=== PATIENT | female | born 1980 | race Two or more races ===

== ENCOUNTER 2017-01-04 08:15 | Outpatient (CLI) | payer OTHER | END 2017-01-04 08:16 | disposition critical access hospital (66) | LOC: EMS 08:15 | PROVIDERS: ATTEND Surgery | DX: R06.02 Shortness of breath (principal); R11.2 Nausea with vomiting, unspecified; R07.9 Chest pain, unspecified | CPT/HCPCS: A0425; A0427 ==

== ENCOUNTER 2017-10-13 08:00 | Outpatient (CLI) | payer OTHER | END 2017-10-13 08:01 | disposition home or self-care (01) | LOC: LAB.WCP 08:00 | PROVIDERS: ATTEND Internal Medicine Rheumatology | DX: M79.1 Myalgia (principal) | CPT/HCPCS: 36415; 82550 ==

== ENCOUNTER 2019-03-23 08:00 | Outpatient (CLI) | payer OTHER ==
[2019-03-23 19:01] LABS: BASOPHILS # (AUTO) 0.1 10^3/uL (0.0-0.1); BASOPHILS % (AUTO) 0.7 %; EOSINOPHILS # (AUTO) 0.1 10^3/uL (0.0-0.7); EOSINOPHILS % (AUTO) 0.7 %; HGB - HEMOGLOBIN 13.2 g/dL (12.0-16.0); LYMPHOCYTES # (AUTO) 1.7 10^3/uL (1.5-3.5); LYMPHOCYTES % (AUTO) 14.1 %; MEAN CORPUSCULAR HEMOGLOBIN 30.4 pg (27.0-31.0); MEAN CORPUSCULAR HGB CONC 31.6 g/dL (32.0-36.0); MEAN CORPUSCULAR VOLUME 96.3 fL (81.0-99.0); MEAN PLATELET VOLUME 10.8 fL (7.9-10.8); MONOCYTES # (AUTO) 0.4 10^3/uL (0.0-1.0); MONOCYTES % (AUTO) 3.5 %; NEUTROPHILS % (AUTO) 80.4 %; PLT - PLATELET COUNT 371 10^3/uL (130-450); RED BLOOD COUNT 4.34 10^6/uL (4.20-5.40); RED CELL DISTRIBUTION WIDTH 13.2 % (12.0-15.0); WHITE BLOOD COUNT 12.4 x10^3/uL (4.8-10.8)
[2019-03-23 19:29] LABS: ALBUMIN/GLOBULIN RATIO 0.9 (1.0-2.2); ALKALINE PHOSPHATASE 73 IU/L (42-121); ALT ALANINE AMINOTRANSFERASE 12 IU/L (10-60); AST ASPARTATE AMINOTRANSFERASE 18 IU/L (10-42); BILIRUBIN,TOTAL 0.5 mg/dL (0.2-1.0); BUN - BLOOD UREA NITROGEN 13 mg/dL (6-20); CARBON DIOXIDE - CO2 30 mmol/L (21-32); CHLORIDE 101 mmol/L (101-111); CREATININE 0.6 mg/dL (0.4-1.0); GFR - MDRD 112 (>89); GLUCOSE 83 mg/dL (70-100); SODIUM 138 mmol/L (135-145); TOTAL PROTEIN 8.4 g/dL (6.7-8.2)
[2019-03-23 19:31] LABS: CRP - C-REACTIVE PROTEIN < 1.0 mg/dL (0-1.0)
[2019-03-25 11:41] LABS: DNA (DS) ANTIBODY 1 IU/mL
[2019-03-25 12:21] LABS: COMPLEMENT COMPONENT C4C 32 mg/dL (15-57)
[2019-03-27 00:47] LABS: COMPLEMENT COMPONENT C3C 143 mg/dL (83-193)
== END 2019-03-23 23:59 ==
LOC: LAB.WCP 08:00
PROVIDERS: ATTEND Internal Medicine Rheumatology
DX: M35.1 Other overlap syndromes (principal); M32.9 Systemic lupus erythematosus, unspecified
CPT/HCPCS: 36415; 80053; 85025; 85651; 86140; 86147; 86160; 86225

== ENCOUNTER 2019-03-23 11:19 | Outpatient (CLI) | payer OTHER ==
--- NOTE | 2019-03-23 16:34 | XRAY Report ---
Reason: PLEURITIC CHEST PAIN Procedure Date: 03/23/2019 Accession Number: [id number] / [id number] Procedure: WCP - Chest 2 View X-Ray CPT Code: 50598 FULL RESULT: EXAM: CHEST RADIOGRAPHY EXAM DATE: 03/23/2019 11:19 AM. CLINICAL HISTORY: PLEURITIC CHEST PAIN. COMPARISON: None. TECHNIQUE: 2 views. FINDINGS: Lungs/Pleura: No focal opacities evident. No pleural effusion. No pneumothorax. Normal volumes. Mediastinum: Heart and mediastinal contours are unremarkable. Other: None. IMPRESSION: No acute cardiopulmonary process. RADIA
== END 2019-03-23 23:59 | disposition home or self-care (01) ==
LOC: DI.WCP 11:19
PROVIDERS: ATTEND Internal Medicine Rheumatology
DX: R07.81 Pleurodynia (principal)
CPT/HCPCS: 71046

== ENCOUNTER 2019-05-10 08:00 | Outpatient (CLI) | payer OTHER | END 2019-05-10 23:59 | disposition home or self-care (01) | LOC: LAB.WCP 08:00 | PROVIDERS: ATTEND Nurse Practitioner Family | DX: M32.9 Systemic lupus erythematosus, unspecified (principal); M35.1 Other overlap syndromes | CPT/HCPCS: 36415; 81001; 85651; 86140 ==

== ENCOUNTER 2023-07-17 15:54 | Emergency (ER) | payer OTHER ==
[2023-07-17] MEDS: TETANUS/DIPHTHERIA/PERTUSSIS 0.5 ML SYRINGE IM ONE (18:16)
--- NOTE | 2023-07-17 19:15 | ED Physician Documentation ---
PD HPI SKIN - Stated complaint Stated Complaint: DOG BITE - Chief complaint Chief Complaint: Laceration - Additional information Additional information: 43-year-old female with no significant past medical history presents emergency department for laceration to her left ear after accidental dog bite. She says that she recently got a new puppy its about 10 months old and that was playing with her accidentally bit her left ear. She is not any blood thinners. Bleeding is well-controlled. Dog is up-to-date with immunizations she does not think she is up-to-date with her tetanus shot. PD PAST MEDICAL HISTORY - Past Medical History Past Medical History: Yes Cardiovascular: None Respiratory: None Endocrine/Autoimmune: Systemic lupus erythematosus, Other GI: None : None HEENT: None Psych: None Musculoskeletal: None Derm: None - Past Surgical History Past Surgical History: Yes Ortho: Other /.NET ARCHITECT: Tubal ligation, Breast implants HEENT: Other Derm: Other - Present Medications Home Medications: Ambulatory Orders Medication Instructions Recorded Confirmed No Known Home Medications 07/17/23 07/17/23 - Allergies Allergies/Adverse Reactions: Allergies Allergy/AdvReac Type Severity Reaction Status Date / Time No Known Drug Allergies Allergy Verified 07/17/23 16:10 - Social History Does the pt smoke?: No Smoking Status: Never smoker Does the pt drink ETOH?: Yes Does the pt have substance abuse?: No PD ED PE NORMAL - Vitals Vital signs reviewed: Yes - General General: Alert and oriented X 3, No acute distress, Well developed/nourished - HEENT HEENT: Other (Left external ear, upper cartilage appears to have about a 1.5 cm laceration with oozing gia blood) - Derm Derm: Other (Left ear laceration cartilage region) Results - Vitals Vitals: Vital Signs - 24 hr 07/17/23 07/17/23 16:06 19:18 Temperature 36.9 C Heart Rate 83 65 Respiratory 16 16 Rate Blood Pressure 150/88 H 139/82 H O2 Saturation 100 94 Oxygen O2 Source Room air Procedures - Laceration (location) Left ear laceration Length in cm: 1.5 Wound type: Linear, Stellate, Superficial, Clean Neurovascular status: Sensory intact Anesthesia: Lidocaine 1% Wound preparation: Irrigated copiously NS Skin layer closure: Nylon, Size #-0 - enter number (6-0), Sutures - enter # (3) Other: Patient tolerated well, Tetanus booster given, Other (Bacitracin applied to the left ear) PD Medical Decision Making - ED course ED course: Wound inspected under direct bright light with good visualization. left upper ear soft tissue laceration without involvement of the cartilage.No overt foreign body. Area hemostatic. Area extensively irrigated with sterile normal saline. Laceration repaired with 3 sutures (please see procedure note for further details). Patient tolerated procedure well. Cautious return precautions discussed w/ full understanding. Wound care discussed. Prompt follow up with primary care provider discussed and return for suture removal in 5 days. Tdap updated Departure - Departure Disposition: Home, Self Care Clinical Impression: Dog bite of left ear Qualifiers: Encounter type: initial encounter Qualified Code(s): S01.352A - Open bite of left ear, initial encounter Instructions: Wound Care Comments: Come back for any signs of infection which would include: Redness, swelling, drainage, increased pain, or fevers. You can wash it soap and water. Keep it covered and moist with bacitracin ointment which is available over the counter; avoid neosporin. Follow-up with your physician in [5] days for suture removal, you have a total of three sutures. Forms: PCP List Discharge Date/Time: 07/17/23 19:20
[2023-07-17 19:29] VITALS: BP 139/82; O2SAT 94
== END 2023-07-17 19:20 | disposition home or self-care (01) ==
LOC: ED 15:54
DX: S01.312A Laceration without foreign body of left ear, initial encounter (principal); W54.0XXA Bitten by dog, initial encounter; Y93.K9 Activity, other involving animal care
CPT/HCPCS: 12011; 90471; 99283

== ENCOUNTER 2023-10-23 10:41 | Emergency (ER) | payer OTHER ==
[2023-10-23 10:58] VITALS: BP 148/69; O2SAT 100
--- NOTE | 2023-10-23 11:20 | XRAY Report ---
PROCEDURE: Ankle 3+V RT INDICATIONS: Trauma TECHNIQUE: 3 views of the ankle were acquired. COMPARISON: None. FINDINGS: Bones: No fractures or dislocations. Ankle mortise is normally aligned. No suspicious bony lesions . Soft tissues: No tibiotalar joint effusion. Achilles tendon appears normal. IMPRESSION: No acute bony abnormality. If pain persists with conservative management, consider repeat x-ray in 10 -14 days or cross-sectional imaging. Reviewed by: Andriy Shi MD on 10/23/2023 11:19 AM PDT Approved by: Andriy Shi MD on 10/23/2023 11:19 AM PDT Station ID: [id number]
--- NOTE | 2023-10-23 11:38 | ED Physician Documentation ---
PD HPI LOWER EXT INJURY - Stated complaint Stated Complaint: GLF,RT ANKLE INJ - Chief complaint Chief Complaint: Trauma Ext - History obtained from History obtained from: Patient - History of Present Illness PD HPI LOW EXT INJURY LOCATION: Right, Ankle Type of injury: Fall, Twist (walking down steps, had a twisting of ankle and felt a pop, with pain on weight bearing. Had ice on it much of the night. 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, Breast implants HEENT: Other Derm: Other - Present Medications Home Medications: Ambulatory Orders Medication Instructions Recorded Confirmed No Known Home Medications 07/17/23 10/23/23 - Allergies Allergies/Adverse Reactions: Allergies Allergy/AdvReac Type Severity Reaction Status Date / Time No Known Drug Allergies Allergy Verified 07/17/23 16:10 - Social History Does the pt smoke?: No Smoking Status: Never smoker Does the pt drink ETOH?: Yes Does the pt have substance abuse?: No - Immunizations Immunizations are current?: Yes PD ED PE NORMAL - Vitals Vital signs reviewed: Yes - Derm Derm: Normal color, Warm and dry - Extremities Extremities: Other (right ankle tendeer medial and lateral with just mild swelling laterally. Some pain anterior ankle. Achilles firm and not tender. ) - Neuro Neuro: No motor deficit, No sensory deficit Results - Vitals Vitals: Oxygen O2 Source Room air - Rads (name of study) ankle xray Relevant Findings:: Prelim report reviewed, EMP independent interpretation of test (no fractures) PD Medical Decision Making - ED course Complexity details: reviewed results, considered differential (no fractures but hurts with not only inversion and laterally, but medial and some to front and with eversion/etc So willguard ROM more completely with boot orthosis rather than aircast. ), d/w patient Departure - Departure Disposition: 01 Home, Self Care Clinical Impression: Ankle sprain Condition: Stable Instructions: ED Sprain Ankle Comments: Your x-ray is negative without any signs of ankle fracture and or dislocation. Obviously you still have injury of the ankle and presumption would be the stretching or partial tearing of the ligaments and muscles (ankle sprain). Given how tender it is and painful with walking and weightbearing, concern would be for some partial tears. With that in mind, I would suggest more of a walking boot as opposed to just a simple brace. This will provide a sturdier support. It is okay to have the brace/boot orthosis off when rested and sleep etc. You will want to have it on to help support the ankle during the day and when you are up and around. Initially you can use crutches for partial to no weightbearing. It is okay to progress to full weightbearing as tolerated. This is adequate and appropriate for sprains. Elevate rest and ice your ankle often to reduce swelling. Ibuprofen or Tylenol if needed for pains. I would suggest may be some ibuprofen 2-3 times a day regularly for the next several days to week. I would anticipate this improving over the next week or so. However sometimes it can take 2 or 3 weeks to really resolve. Progress to full weightbearing as tolerated. Continue with the ankle brace until fully healed without pain on weightbearing/walking. Forms: PCP List Discharge Date/Time: 10/23/23 12:49
== END 2023-10-23 12:49 | disposition home or self-care (01) ==
LOC: ED 10:41
DX: S93.401A Sprain of unspecified ligament of right ankle, initial encounter (principal); X50.9XXA Other and unspecified overexertion or strenuous movements or postures, initial encounter; M32.9 Systemic lupus erythematosus, unspecified; Z98.82 Breast implant status
CPT/HCPCS: 99283; 99284